=== PATIENT | female | born 1950 | race Caucasian/White ===

== ENCOUNTER 2020-04-25 18:19 | Inpatient (IN) | payer MEDICARE, BC ==
[2020-04-25 19:25] LABS: Hemoglobin 13.8 g/dL (12.0-16.0); Mean Corpuscular HGB CONC 33.8 g/dL (32.0-36.0); Mean Corpuscular Hemoglobin 31.2 pg (27.0-31.0); Mean Corpuscular Volume 92.2 fL (78.0-98.0); Mean Platelet Volume 8.1 fL (7.4-10.4); Platelet Count 299 thou/uL (130-400); RBC Distribution Width 11.6 % (11.5-14.5); Red Blood Cell (RBC) Count 4.42 mill/uL (4.20-5.40); White Blood Cell (WBC) Count 9.6 thou/uL (4.8-10.8)
[2020-04-25 19:42] LABS: ALT (SGPT) 14 U/L (8-55); AST (SGOT) 19 U/L (5-34); Albumin 4.4 g/dL (3.4-4.8); Alkaline Phosphatase 63 U/L (40-110); Anion Gap 14 mmol/L (10-20); BUN (Urea Nitrogen) 10 mg/dL (9.8-20.1); Bilirubin, Total 0.2 mg/dL (0.2-1.2); Calc. Creatinine Clearance 0 mL/min (70-130); Calcium 9.3 mg/dL (7.8-10.44); Carbon Dioxide 27 mmol/L (23-31); Chloride 103 mmol/L (98-107); Estimated GFR-MDRD 72; Glucose 91 mg/dL (80-115); Protein, Total 7.4 g/dL (6.0-8.3); Sodium 140 mmol/L (136-145)
[2020-04-25 19:45] LABS: Band 2 % (5-11); Eosinophils 1 % (0-10); Lymphocytes 43 % (21-51); MDiff Complete? YES; Monocytes 3 % (0-10); Neutrophil 37 % (42-75); Platelet Morphology Comment Appears Adequate; Polychromasia SLIGHT = 2-3 cells (100X) (0-2/hpf); Reactive Lymphocytes 14 % (0-10)
--- NOTE | 2020-04-25 19:49 | RAD ---
TWO VIEW CHEST: 04/25/20 HISTORY: Chest pain and shortness of breath. Lung woods are clear. Heart and mediastinum appear normal. Vasculature normal. IMPRESSION: No acute process. POS: AGW
[2020-04-25] MEDS ORDERED: Albuterol 200 PUFF (6.7GM INHALER) ONE (21:57)
[2020-04-25] MEDS ORDERED: Aspirin 325 MG TAB ONE (21:57)
[2020-04-25] MEDS ORDERED: Morphine 2 MG/ML VIAL ONE (21:57)
[2020-04-25] MEDS ORDERED: methylPREDNISolone Sod Succ/PF 125 MG/2 ML VIAL ONE (21:57)
[2020-04-26 00:16] LABS: Troponin I Less than 0.010 ng/mL (< 0.028)
[2020-04-26 02:44] VITALS: BMI 24.0
[2020-04-26 03:25] LABS: Troponin I 0.011 ng/mL (< 0.028)
[2020-04-26] MEDS ORDERED: Aspirin Chewable 81 MG TAB PO SCH (09:00)
[2020-04-26] MEDS ORDERED: Regadenoson 0.4 MG/5 ML SYRINGE ONE (09:21)
[2020-04-26] MEDS ORDERED: Nitroglycerin 0.4 MG TAB (25 Tab Bottle) SL PRN (09:23)
--- NOTE | 2020-04-26 10:16 | PDOC.HHP ---
Hospitalist HPI - History of Present Illness Chest pain History of Present Illness: Ms. Eldridge is a 69-year-old female with a past medical history of asthma, tobacco use who presented to the ED for chest pain. Patient reports that 2 days prior to admission she was working in her yard moving lots of very heavy items and noticed that she became short of breath quite easily. She reports that she felt a chest tightness as if she was wearing her bra 2 sizes too small. She has not had dyspnea previously, although she does have a history of asthma for which she takes montelukast and rarely uses an albuterol inhaler for. She did use her albuterol inhaler during this event, but did not find any relief in her symptoms. She reports that her chest tightness has been constant over the past 2 days. She reports no alleviating or aggravating factors. At time of exam she notes her chest tightness is much improved and she is asymptomatic. She denies any history of heart disease, but does report that she had a cardiac catheterization in 2007 which was normal. She has a family history of heart disease in her mother and grandmother. Patient also reports that she smokes 1 to 2 packs of cigarettes per day. She denies any numbness, paresthesias, weakness. She denies any changes in vision. She denies any nausea, vomiting, diarrhea. In the emergency room initial vital signs 151/56, 87, 18, 97.9, 99% on room air. EKG showed normal sinus rhythm with no ischemic changes. Initial troponin 0 0.01. Chest x-ray showed no acute process. H/H 13.8/40.7. WBC 9.6. BUN/CR 10/0.79. Sodium 140, potassium 4.0. In the ED patient received 3 and 25 mg of aspirin, albuterol inhaler, methylprednisone 125 mg, morphine 2 mg, 1.5 L of normal saline. Hospitalist ROS - Review of Systems Constitutional: denies: fever, chills, sweats, weakness, malaise, other Eyes: denies: pain, vision change, conjunctivae inflammation, eyelid inflammation, redness, other ENT: denies: ear pain, ear discharge, nose pain, nose discharge, nose congestion, mouth pain, mouth swelling, throat pain, throat swelling, other Respiratory: reports: SOB with excertion. denies: cough, dry, shortness of breath, hemoptysis, pleuritic pain, sputum, wheezing, other Cardiovascular: reports: chest pain. denies: palpitations, orthopnea, paroxysmal noc. dyspnea, edema, light headedness, other Gastrointestinal: denies: nausea, vomiting, abdominal pain, diarrhea, constipation, melena, hematochezia, other Genitourinary: denies: dysuria, frequency, incontinence, hematuria, retention, other Musculoskeletal: denies: neck pain, shoulder pain, arm pain, back pain, hand pain, leg pain, foot pain, other Skin: denies: rash, lesions, temi, bruising, other Neurological: denies: weakness, numbness, incoordination, change in speech, confusion, seizures, other - Medication Medications: Home medications include Montelukast Premarin No known drug allergies Hospitalist History - Past Medical History Other Medical History: Past medical history of Asthma Tobacco use - Past Surgical History Other Surgical History: Past surgical history includes Tonsillectomy Hysterectomy - Family History Other Family History: Family history of heart attack in patient's mother, and grandmother. - Social History Smoking Status: Current every day smoker Tobacco Type: cigarettes Alcohol: reports: None Drugs: reports: none Living Situation: With Family Activity level: independent ambulation Other Social History: Patient lives at home with her son who has special needs. Patient notes that her 3 years ago, which has been very difficult for her son. - Exam General Appearance: NAD, awake alert Eye: PERRL, anicteric sclera ENT: normocephalic atraumatic, no oropharyngeal lesions, moist mucosa Neck: supple, symmetric, no JVD, no thyromegaly, no lymphadenopathy, no carotid bruit Heart: RRR, no murmur, no gallops, no rubs, normal peripheral pulses Respiratory: CTAB, no wheezes, no rales, no ronchi, normal chest expansion, no tachypnea, normal percussion Gastrointestinal: soft, non-tender, non-distended, normal bowel sounds, no palpable masses, no hepatomegaly, no splenomegaly, no bruit Extremities: no cyanosis, no clubbing, no edema Skin: normal turgor, no lesions, no rashes Neurological: cranial nerve grossly intact, normal sensation to touch, no weakness, no focal deficits, no new deficit Musculoskeletal: normal tone, normal strength, no muscle wasting Psychiatric: normal affect, normal behavior, A&O x 3 Hospitalist Results - Labs Result Diagrams: 04/25/20 19:11 04/25/20 19:11 Lab results: WBC 9.6 thou/uL (4.8-10.8) 04/25/20 19:11 Hgb 13.8 g/dL (12.0-16.0) 04/25/20 19:11 Hct 40.7 % (36.0-47.0) 04/25/20 19:11 MCV 92.2 fL (78.0-98.0) 04/25/20 19:11 Plt Count 299 thou/uL (130-400) 04/25/20 19:11 Band Neuts % (Manual) 2 % (5-11) L 04/25/20 19:11 Sodium 140 mmol/L (136-145) 04/25/20 19:11 Potassium 4.0 mmol/L (3.5-5.1) 04/25/20 19:11 Chloride 103 mmol/L (98-107) 04/25/20 19:11 Carbon Dioxide 27 mmol/L (23-31) 04/25/20 19:11 BUN 10 mg/dL (9.8-20.1) 04/25/20 19:11 Creatinine 0.79 mg/dL (0.6-1.1) 04/25/20 19:11 Glucose 91 mg/dL (80-115) 04/25/20 19:11 Calcium 9.3 mg/dL (7.8-10.44) 04/25/20 19:11 Total Bilirubin 0.2 mg/dL (0.2-1.2) 04/25/20 19:11 AST 19 U/L (5-34) 04/25/20 19:11 ALT 14 U/L (8-55) 04/25/20 19:11 Alkaline Phosphatase 63 U/L (40-110) 04/25/20 19:11 Troponin I 0.011 ng/mL (< 0.028) 04/26/20 02:51 Serum Total Protein 7.4 g/dL (6.0-8.3) 04/25/20 19:11 Albumin 4.4 g/dL (3.4-4.8) 04/25/20 19:11 Lipase 30 U/L (8-78) 04/25/20 19:11 Hospitalist H&P A/P - Plan Plan: Chest pain 69-year-old female with past medical history of asthma, 1.5 pack/day smoker who has a family history significant for heart disease in mother and grandmother who presents with 2 days of chest tightness. Initial EKG showed normal sinus rhythm with no ischemic changes. Initial troponin 0 0.01. D-dimer 0.27. Chest x-ray with no acute findings. History of a cardiac cath in 2007 which was normal. Patient has not had any stress testing since then. Patient did receive methylprednisolone, ASA, albuterol nebulizer in emergency room with mild improvement in her symptoms. Patient currently denies any chest pain. Will admit for chest pain rule out with plan for stress test if troponins stay negative. Plan Trend troponin N.p.o. for stress test Telemetry monitoring Magnesium, TSH Daily aspirin Lipid panel, hemoglobin A1c Asthma Patient has history of asthma for which she takes daily montelukast 4. Patient reports that she rarely uses her albuterol inhaler, only once every few years. Patient did use her albuterol inhaler when she felt her shortness of breath and chest tightness, but this did not improve her symptoms. Patient received 125 mg of methylprednisone in the ED as well as an albuterol nebulizer. Patient currently saturating at 99% on room air in no respiratory distress. Patient reports her breathing feels back to baseline. Plan Continue daily montelukast Albuterol nebulizers as needed Continue to monitor respiratory status Tobacco use History of tobacco use, patient reports 1 to 2 packs/day. Patient counseled on smoking cessation, particularly given her family history. Plan Smoking cessation education DVT prophylaxis: Lovenox Full code Case discussed with attending physician Dr. Chung.
[2020-04-26] MEDS ORDERED: Albuterol Sulfate 2.5 mg/3 ml Neb NEB PRN (10:25)
[2020-04-26 13:00] LABS: SARS-CoV-2 MS2 Positive; SARS-CoV-2 N Gene Negative; SARS-CoV-2 S Gene Negative; SARS-CoV-2 by NAA Not Detected (NotDetected); SARS-CoV-2 orf1ab Negative
--- NOTE | 2020-04-26 13:22 | NM ---
NM Cardiac Stress W EF WF History: Chest pain Comparison: None. Findings: Stress and rest performed after the intravenous administration of 30 and 9.1 mCi technetium 99m sestamibi, respectively. Small anterior septal scar. No reversible ischemia. Normal wall motion. Calculated ejection fraction is 71%. Impression: 1. No reversible ischemia. 2. Small anterior septal scar. 3. Normal wall motion.
[2020-04-26] MEDS ORDERED: Montelukast Sodium 10 mg Tablet PO SCH (21:00)
[2020-04-27 04:54] LABS: Cardiac Risk 3.1 (Less than 4.5)
[2020-04-27] MEDS ORDERED: Aspirin 81 mg Enteric Coated Tablet PO SCH (09:00)
[2020-04-27] MEDS ORDERED: Aspirin 325 mg Enteric Coated Tablet PO SCH ×2 (09:00)
[2020-04-27] MEDS ORDERED: Enoxaparin Sodium 40 MG/0.4 ML SYRINGE SC SCH (09:00)
--- NOTE | 2020-04-27 11:39 | PDOC.DS.DS ---
Provider - Provider Date of Admission: 04/25/20 23:23 Date of Discharge: 04/27/20 Admitting Provider: Ian Majano Consultations: Cardiology (STRESS TEST) Primary Care Physician: Ángel Domínguez MD Course - Hospital Course Hospital Course: Ms. Eldridge is a 69-year-old woman whose medical history includes tobacco dependence, history of asthma presented to the hospital with chest tightness that started on the date of this admission. She does have a very strong family history of coronary artery disease in multiple family members. She was concerned she was having an acute coronary syndrome when she was admitted for further evaluation. Her cardiac enzymes were negative. She underwent a Cardiolite stress test that did not show any reversible ischemia. She has remained clinically stable since her admission. We did talk about risk factor modifications including tobacco cessation. She will follow-up with her PCP. She will discuss options for tobacco cessation during that visit. She otherwise appears to be doing reasonably well and is discharged home today in stable condition. Pertinent Studies: Cardiolite stress test. - Labs Lab Results: 04/25/20 19:11 04/25/20 19:11 Abnormal Lab Results - Last 48 hrs 04/25/20 19:11: MCH 31.2 H, Neutrophils % (Manual) 37 L, Band Neuts % (Manual) 2 L, Reactive Lymphs % 14 H 04/25/20 21:40: D-Dimer Less than 0.27 L - Physical Exam Vitals: Vital Signs (12 hours) Temp Pulse Resp BP Pulse Ox 04/27/20 08:00 97 04/27/20 04:28 98.0 F 96 18 108/58 L 04/27/20 02:10 96 Weight Weight 145 lb 9.6 oz Physical Exam: The patient was seen and examined on the day of discharge. Problem - Discharge Plan Assessment: Chest tightness. Tobacco dependence. History of asthma. Plan of Treatment: Stress test. - Problem (1) Chest tightness Code(s): R07.89 - OTHER CHEST PAIN Status: Acute (2) Tobacco dependence Code(s): F17.200 - NICOTINE DEPENDENCE, UNSPECIFIED, UNCOMPLICATED Status: Acute Plan - Discharge Medications Home Medications: Medication Instructions Recorded Confirmed Type Aspirin [Ecotrin Low Strength] 81 mg PO HS 04/26/20 04/26/20 History Estrogens, Conjugated [Premarin] 0.625 mg PO HS 04/26/20 04/26/20 History Montelukast Sodium [Singulair] 10 mg PO HS 04/26/20 04/26/20 History Allergies: No Known Drug Allergies Allergy (Unverified 04/26/20 02:11) - Discharge Instructions Activity:: Activity as Tolerated Nourishment:: Heart Healthy Diet Therapies:: Not Applicable Equipment/Supplies:: Not Applicable IV Therapy:: Not Applicable - Follow up Plan Referrals: Ángel Domínguez MD [Primary Care Provider] - 7 Days Disposition: HOME Quality - Care Measures CORE MEASURES:: N/A
[2020-04-27 12:32] VITALS: BP 126/62; TEMP 98.2
--- NOTE | 2020-05-05 15:05 | EKG ---
Test Reason : CP Blood Pressure : / mmHG Vent. Rate : 083 BPM Atrial Rate : 083 BPM P-R Int : 122 ms QRS Dur : 084 ms QT Int : 356 ms P-R-T Axes : 082 068 071 degrees QTc Int : 418 ms Normal sinus rhythm Possible Left atrial enlargement Borderline ECG Confirmed by MARY LOUISE ([id number]), marketing editor FRANSISCO KERR ([id number] on 05/05/2020 3:04:39 PM Referred By: Confirmed By:MARY LOUISE
== END 2020-04-27 13:33 | disposition home or self-care (01) | DRG 313 ==
LOC: ERS 18:19 → 2NO 23:23
PROVIDERS: ADMIT Internal Medicine; ATTEND Hospitalist
DX: R07.89 Other chest pain (principal); J44.1 Chronic obstructive pulmonary disease with (acute) exacerbation; F17.210 Nicotine dependence, cigarettes, uncomplicated; Z20.828 Contact with and (suspected) exposure to other viral communicable diseases; I10 Essential (primary) hypertension; F32.9 Major depressive disorder, single episode, unspecified; Z79.899 Other long term (current) drug therapy; Z90.710 Acquired absence of both cervix and uterus; Z79.82 Long term (current) use of aspirin
CPT/HCPCS: 36415; 71046; 78452; 80053; 80061; 83036; 83690; 83735; 84443; 84484; 85025; 85379; 87635; 93005; 93017; 93306; 94760; 96374; 96375; A9500; J1650; J2270; J2785; J2930; U0003

== ENCOUNTER 2022-04-18 09:51 | Outpatient (CLI) | payer MEDICARE, BC | END 2022-04-18 09:52 | disposition home or self-care (01) | LOC: BICMAMMO 09:51 | PROVIDERS: ATTEND Family Medicine | DX: Z12.31 Encounter for screening mammogram for malignant neoplasm of breast (principal); Z80.3 Family history of malignant neoplasm of breast | CPT/HCPCS: 77063; 77067 ==

== ENCOUNTER 2023-01-09 09:10 | Outpatient (CLI) | payer MEDICARE, BC | END 2023-01-09 09:11 | disposition home or self-care (01) | LOC: BICMAMMO 09:10 | PROVIDERS: ATTEND Family Medicine | DX: N63.42 Unspecified lump in left breast, subareolar (principal); N64.89 Other specified disorders of breast | CPT/HCPCS: 76642; 77066; G0279 ==

== ENCOUNTER 2023-01-30 10:57 | Day surgery (SDC) | payer MEDICARE, BC ==
[2023-01-29 10:55] VITALS: BMI 22.2
[2023-01-30] MEDS ORDERED: Bupivacaine HCl 0.5%/Epinephrine 1:200,000/PF 30 ml Vial ONE (11:16)
[2023-01-30] MEDS ORDERED: Sevoflurane 250 ML INH ANEST BOTTLE ONE (11:16)
[2023-01-30] MEDS ORDERED: Lidocaine 2% PF 5 ML VIAL ONE (11:16)
[2023-01-30 12:34] LABS: #Basophils 0.1 thou/uL (0.0-0.2); #Eosinphils 0.2 thou/uL (0.0-0.7); #Monocytes 0.4 thou/uL (0.11-0.59); #Neutrophils 3.7 thou/uL (1.40-6.50); %Basophils 0.6 % (0.0-1.0); %Eosinophils 1.9 % (0.0-10.0); %Lymphocytes 43.6 % (21.0-51.0); %Monocytes 5.7 % (0.0-10.0); %Neutrophils 47.8 % (42.0-75.0); Hemoglobin 13.1 g/dL (12.0-16.0); Mean Corpuscular HGB CONC 32.5 g/dL (32.0-36.0); Mean Corpuscular Hemoglobin 29.8 pg (27.0-31.0); Mean Corpuscular Volume 91.8 fl (78.0-98.0); Platelet Count 308 10x3/uL (130-400); RBC Distribution Width 12.6 % (11.5-14.5); Red Blood Cell (RBC) Count 4.39 mill/uL (4.20-5.40); White Blood Cell (WBC) Count 7.7 10x3/uL (4.8-10.8)
[2023-01-30 12:57] LABS: Anion Gap 13 mmol/L (10-20); BUN (Urea Nitrogen) 11 mg/dL (9.8-20.1); Calc. Creatinine Clearance 63 mL/min (70-130); Calcium 9.4 mg/dL (7.8-10.44); Carbon Dioxide 28 mmol/L (23-31); Chloride 104 mmol/L (98-107); Estimated GFR 77; Glucose 82 mg/dL (83-110); Potassium 4.1 mmol/L (3.5-5.1); Sodium 141 mmol/L (136-145)
[2023-01-30] MEDS ORDERED: fentaNYL PF 100 MCG/2 ML SYRINGE ONE (13:25)
[2023-01-30] MEDS ORDERED: Propofol 500 MG/50 ML VIAL ONE (13:26)
[2023-01-30] MEDS ORDERED: Sodium Chloride 0.9% 100 ML ONE (13:29)
[2023-01-30] MEDS ORDERED: CEFAZOLIN 2 GM VIAL ONE (13:29)
== END 2023-01-30 15:33 | disposition home or self-care (01) ==
LOC: SDC 10:57
PROVIDERS: ATTEND Surgery
PROC: 0JH60WZ Insertion of Totally Implantable Vascular Access Device into Chest Subcutaneous Tissue and Fascia, Open Approach (ICD-10-PCS; principal; 2023-01-30)
DX: C50.912 Malignant neoplasm of unspecified site of left female breast (principal); F17.210 Nicotine dependence, cigarettes, uncomplicated; Z90.710 Acquired absence of both cervix and uterus; Z90.89 Acquired absence of other organs; Z79.82 Long term (current) use of aspirin
CPT/HCPCS: 71045; 80048; 85025; C1788; J1642; J2001; J2704; J3490

== ENCOUNTER 2023-02-04 08:00 | Outpatient (CLI) | payer MEDICARE, BC ==
[2023-02-04] MEDS ORDERED: Iopamidol 370 76% 100 ML VIAL ONE (09:32)
== END 2023-02-04 08:01 | disposition home or self-care (01) ==
LOC: CT 08:00
PROVIDERS: ATTEND Internal Medicine
DX: C50.412 Malignant neoplasm of upper-outer quadrant of left female breast (principal); N63.20 Unspecified lump in the left breast, unspecified quadrant; K76.9 Liver disease, unspecified
CPT/HCPCS: 71260; 74177; 78306; A9503; Q9967

== ENCOUNTER 2023-02-25 12:29 | Outpatient (CLI) | payer MEDICARE, BC | END 2023-02-25 12:30 | disposition home or self-care (01) | LOC: BICMRI 12:29 | PROVIDERS: ATTEND Internal Medicine | DX: C50.412 Malignant neoplasm of upper-outer quadrant of left female breast (principal) | CPT/HCPCS: 36415; 74183; 80053; 84439; 84443 ==

== ENCOUNTER 2023-04-24 10:51 | Emergency (ER) | payer MEDICARE, BC ==
[~2023-04-24 10:51] MED LIST: Iopamidol-370 76% 500 ML MDV (1 ML CHARGE) ONE
[2023-04-24 12:18] LABS: Hematocrit 22.1 % (36.0-47.0); Hemoglobin 7.2 g/dL (12.0-16.0); Mean Corpuscular HGB CONC 32.6 g/dL (32.0-36.0); Mean Corpuscular Volume 98.2 fl (78.0-98.0); Mean Platelet Volume 10.1 fL (7.4-10.4); Platelet Count 166 10x3/uL (130-400); RBC Distribution Width 18.9 % (11.5-14.5); Red Blood Cell (RBC) Count 2.25 mill/uL (4.20-5.40); White Blood Cell (WBC) Count 4.8 10x3/uL (4.8-10.8)
[2023-04-24 12:19] LABS: Delete Auto Diff?? YES; Manual Diff?? YES
[2023-04-24 12:37] LABS: ALT (SGPT) 10 U/L (8-55); AST (SGOT) 16 U/L (5-34); Albumin 3.6 g/dL (3.4-4.8); Alkaline Phosphatase 42 U/L (40-110); Anion Gap 13 mmol/L (10-20); BUN (Urea Nitrogen) 10 mg/dL (9.8-20.1); Bilirubin, Total 0.6 mg/dL (0.2-1.2); Calc. Creatinine Clearance 0 mL/min (70-130); Calcium 8.6 mg/dL (7.8-10.44); Carbon Dioxide 23 mmol/L (23-31); Chloride 100 mmol/L (98-107); Estimated GFR 93; Globulin 2.2 g/dL (2.4-3.5); Glucose 86 mg/dL (83-110); Protein, Total 5.8 g/dL (5.8-8.1); Sodium 132 mmol/L (136-145)
[2023-04-24 12:45] LABS: Troponin I Less than 0.010 ng/mL (< 0.028)
[2023-04-24 12:59] LABS: Anisocytosis SLIGHT = 6-15 cells HPF (0-5); Band 18 % (5-11); CellaVision Operator ID LAB.MJL; Helmet Cells SLIGHT = 2-5 cells HPF (0-1); Lymphocytes 25 % (21-51); Metamyelocyte 2 % (0-0); Monocytes 1 % (0-10); Neutrophil 55 % (42-75); Ovalocytes SLIGHT = 2-5 cells HPF (0-1); Platelet Adequacy Comment Platelets Normal; Polychromasia SLIGHT = 2-3 cells HPF (0-2); Total Cell Count 101
== END 2023-04-24 14:22 | disposition home or self-care (01) ==
LOC: ERS 10:51
DX: D64.9 Anemia, unspecified (principal); J44.9 Chronic obstructive pulmonary disease, unspecified; F17.210 Nicotine dependence, cigarettes, uncomplicated; C50.412 Malignant neoplasm of upper-outer quadrant of left female breast; Z79.899 Other long term (current) drug therapy
CPT/HCPCS: 36430; 71045; 71275; 80053 ×2; 82306; 82728; 83540; 83550; 83880; 84484; 85025; 86850; 86900; 86901; 86920; 87040; 93005; 94760; 99285; P9016; 36415; Q9967

== ENCOUNTER 2023-05-18 12:18 | Outpatient (CLI) | payer MEDICARE, BC | END 2023-05-18 12:19 | disposition home or self-care (01) | LOC: ULT 12:18 | PROVIDERS: ATTEND Internal Medicine | DX: Z51.11 Encounter for antineoplastic chemotherapy (principal); C50.412 Malignant neoplasm of upper-outer quadrant of left female breast; I08.1 Rheumatic disorders of both mitral and tricuspid valves; Z79.899 Other long term (current) drug therapy | CPT/HCPCS: 93306 ==

== ENCOUNTER 2023-06-10 10:52 | Inpatient (IN) | payer MEDICARE, BC ==
[2023-06-10 12:11] LABS: Hematocrit 25.2 % (36.0-47.0); Hemoglobin 8.7 g/dL (12.0-16.0); Manual Diff?? YES; Mean Corpuscular HGB CONC 34.5 g/dL (32.0-36.0); Mean Corpuscular Hemoglobin 33.2 pg (27.0-31.0); Mean Corpuscular Volume 96.2 fl (78.0-98.0); Mean Platelet Volume 9.8 fL (7.4-10.4); Platelet Count 297 10x3/uL (130-400); RBC Distribution Width 13.9 % (11.5-14.5); Red Blood Cell (RBC) Count 2.62 mill/uL (4.20-5.40); White Blood Cell (WBC) Count 11.7 10x3/uL (4.8-10.8)
[2023-06-10 12:16] LABS: Delete Auto Diff?? YES
[2023-06-10 12:40] LABS: ALT (SGPT) 7 U/L (8-55); AST (SGOT) 21 U/L (5-34); Albumin 3.5 g/dL (3.4-4.8); Alkaline Phosphatase 59 U/L (40-110); Anion Gap 15 mmol/L (10-20); BUN (Urea Nitrogen) 10 mg/dL (9.8-20.1); Bilirubin, Total 0.6 mg/dL (0.2-1.2); Calc. Creatinine Clearance 0 mL/min (70-130); Calcium 8.5 mg/dL (7.8-10.44); Carbon Dioxide 23 mmol/L (23-31); Chloride 93 mmol/L (98-107); Estimated GFR 86; Globulin 2.8 g/dL (2.4-3.5); Glucose 58 mg/dL (83-110); Protein, Total 6.3 g/dL (5.8-8.1); Sodium 127 mmol/L (136-145)
[2023-06-10 13:24] LABS: Band 24 % (5-11); CellaVision Operator ID LAB.GE; Lymphocytes 20 % (21-51); Metamyelocyte 8 % (0-0); Monocytes 11 % (0-10); Myelocyte 3 % (0-0); Neutrophil 34 % (42-75); Platelet Adequacy Comment Platelets Normal; Polychromasia SLIGHT = 2-3 cells HPF (0-2); Total Cell Count 103; Toxic Granulation SLIGHT
[2023-06-10] MEDS ORDERED: Ondansetron PF 4 MG/2 ML Vial ONE (13:33)
[2023-06-10] MEDS ORDERED: Cefepime 2 GM VIAL ONE (15:31)
[2023-06-10] MEDS ORDERED: Aspirin 325 MG TAB ONE (15:31)
[2023-06-10] MEDS ORDERED: Vancomycin 1 GM/200 ML (FROZEN) BAG ONE (15:34)
[2023-06-10] MEDS ORDERED: Acetaminophen 325 MG TAB PO PRN (15:38)
[2023-06-10] MEDS ORDERED: Acetaminophen 650 MG Suppository PR PRN (15:38)
[2023-06-10] MEDS ORDERED: Prochlorperazine Edisylate 10 MG in Sodium Chloride 0.9% 50 ML IVPB PRN (15:42)
[2023-06-10] MEDS ORDERED: Ondansetron PF 4 MG/2 ML Vial IVP PRN (15:43)
[2023-06-10 16:33] LABS: Bacteria/HPF 1+ HPF (None Seen); Bilirubin Negative (Negative); Blood, Urine Negative (Negative); CAUTI Indications for Culture Immunosuppressed; Clarity Clear (Clear); Glucose, Urine (Dipstick) Normal (Negative); Ketone, Urine 60 mg/dL (Negative); Leukocyte 75 Leu/uL (Negative); Nitrite Negative (Negative); Protein, Urine (Dipstick) Negative (Neg-Trace); Specific Gravity, Urine 1.014 (1.002-1.036); Squamous Epithelial 0-3 HPF (0-3); Urobilinogen Normal mg/dL (Less than 2); pH, Urine 5.5 (5.0-9.0)
[2023-06-10 16:35] LABS: Urine Culture Reflex Yes Yes
[2023-06-10 19:34] VITALS: BMI 21.3
[2023-06-10] MEDS: Mometasone 100 MCG/Formoterol 5 MCG 120 PUFF INHALER INH SCH (19:44)
[2023-06-10 19:59] LABS: Anion Gap 14 mmol/L (10-20); BUN (Urea Nitrogen) 8 mg/dL (9.8-20.1); Calc. Creatinine Clearance 70 mL/min (70-130); Calcium 7.9 mg/dL (7.8-10.44); Carbon Dioxide 19 mmol/L (23-31); Chloride 97 mmol/L (98-107); Estimated GFR 92; Glucose 78 mg/dL (83-110); Potassium 3.8 mmol/L (3.5-5.1); Sodium 126 mmol/L (136-145)
[2023-06-10] MEDS: Sodium Chloride 0.9% 1,000 ML IV SCH (20:35)
[2023-06-10] MEDS: cefTRIAXone\\ROCEPHIN 1 GM in Sodium Chloride 0.9% 100 ML IVPB SCH (20:35)
[2023-06-10] MEDS: Montelukast Sodium 10 mg Tablet PO SCH (20:35)
[2023-06-11 04:37] LABS: Hematocrit 21.8 % (36.0-47.0); Hemoglobin 7.4 g/dL (12.0-16.0); Manual Diff?? YES; Mean Corpuscular HGB CONC 33.9 g/dL (32.0-36.0); Mean Corpuscular Hemoglobin 32.9 pg (27.0-31.0); Mean Corpuscular Volume 96.9 fl (78.0-98.0); Mean Platelet Volume 9.7 fL (7.4-10.4); Platelet Count 304 10x3/uL (130-400); RBC Distribution Width 13.7 % (11.5-14.5); Red Blood Cell (RBC) Count 2.25 mill/uL (4.20-5.40); White Blood Cell (WBC) Count 7.1 10x3/uL (4.8-10.8)
[2023-06-11 04:49] LABS: Delete Auto Diff?? YES
[2023-06-11 05:13] LABS: ALT (SGPT) 9 U/L (8-55); AST (SGOT) 22 U/L (5-34); Albumin 2.8 g/dL (3.4-4.8); Alkaline Phosphatase 47 U/L (40-110); Anion Gap 11 mmol/L (10-20); BUN (Urea Nitrogen) 6 mg/dL (9.8-20.1); Bilirubin, Total 0.4 mg/dL (0.2-1.2); Calc. Creatinine Clearance 71 mL/min (70-130); Carbon Dioxide 23 mmol/L (23-31); Chloride 100 mmol/L (98-107); Estimated GFR 92; Globulin 2.4 g/dL (2.4-3.5); Glucose 80 mg/dL (83-110); Potassium 3.9 mmol/L (3.5-5.1); Protein, Total 5.2 g/dL (5.8-8.1); Sodium 130 mmol/L (136-145)
[2023-06-11 05:16] LABS: Band 21 % (5-11); CellaVision Operator ID LAB.CLH1; Hypochromia SLIGHT = 6-15 cells HPF (0-5); Lymphocytes 23 % (21-51); Metamyelocyte 4 % (0-0); Monocytes 8 % (0-10); Neutrophil 43 % (42-75); Platelet Adequacy Comment Platelets Normal; Polychromasia SLIGHT = 2-3 cells HPF (0-2); Reactive Lymphocytes 1 % (0-10); Total Cell Count 101
[2023-06-11] MEDS: Mometasone 100 MCG/Formoterol 5 MCG 120 PUFF INHALER INH SCH ×2 (06:45→18:46)
[2023-06-11] MEDS: Escitalopram Oxalate 10 mg Tablet PO SCH (08:21)
[2023-06-11] MEDS: Hydrocortisone 10 mg Tablet PO SCH ×3 (11:51→21:20)
[2023-06-11] MEDS: Sodium Chloride 0.9% 1,000 ML IV SCH (11:51)
[2023-06-11 20:32] LABS: Hematocrit 25.6 % (36.0-47.0)
[2023-06-11] MEDS ORDERED: Megestrol Acetate 400 MG/10 ML UDCUP PO SCH (21:00)
[2023-06-11] MEDS: cefTRIAXone\\ROCEPHIN 1 GM in Sodium Chloride 0.9% 100 ML IVPB SCH (21:20)
[2023-06-11] MEDS: Montelukast Sodium 10 mg Tablet PO SCH (21:20)
[2023-06-11] MEDS: Mirtazapine 15 MG TAB PO SCH (21:20)
[2023-06-11] MEDS ORDERED: Megestrol Acetate 800 MG/20 ML UDCUP PO SCH (21:30)
[2023-06-12 04:22] LABS: Hematocrit 25.9 % (36.0-47.0); Manual Diff?? YES; Mean Corpuscular HGB CONC 34.7 g/dL (32.0-36.0); Mean Corpuscular Hemoglobin 32.4 pg (27.0-31.0); Mean Platelet Volume 9.6 fL (7.4-10.4); Platelet Count 341 10x3/uL (130-400); RBC Distribution Width 14.1 % (11.5-14.5); Red Blood Cell (RBC) Count 2.78 mill/uL (4.20-5.40); White Blood Cell (WBC) Count 4.8 10x3/uL (4.8-10.8)
[2023-06-12 04:49] LABS: Anion Gap 11 mmol/L (10-20); BUN (Urea Nitrogen) 4 mg/dL (9.8-20.1); Calc. Creatinine Clearance 80 mL/min (70-130); Calcium 8.5 mg/dL (7.8-10.44); Carbon Dioxide 25 mmol/L (23-31); Chloride 104 mmol/L (98-107); Estimated GFR 95; Glucose 166 mg/dL (83-110); Magnesium 1.8 mg/dL (1.6-2.6); Sodium 136 mmol/L (136-145)
[2023-06-12 05:35] LABS: Delete Auto Diff?? YES; Mean Corpuscular Volume 93.2 fl (78.0-98.0)
[2023-06-12 06:39] LABS: Band 19 % (5-11); Burr Cells SLIGHT = 2-5 cells HPF (0-1); CellaVision Operator ID LAB.JMM; Large Platelets 7.8 % (0-5); Lymphocytes 13 % (21-51); Macrocytosis SLIGHT = 6-15 cells HPF (0-5); Metamyelocyte 1 % (0-0); Monocytes 4 % (0-10); Myelocyte 5 % (0-0); Neutrophil 58 % (42-75); Ovalocytes SLIGHT = 2-5 cells HPF (0-1); Platelet Adequacy Comment Platelets Normal; Poikilocytosis SLIGHT = 6-15 cells HPF (0-5); Polychromasia SLIGHT = 2-3 cells HPF (0-2); Smudge Cells 3.9 %; Total Cell Count 103
[2023-06-12] MEDS: Mometasone 100 MCG/Formoterol 5 MCG 120 PUFF INHALER INH SCH ×2 (07:39→20:07)
[2023-06-12] MEDS: Hydrocortisone 10 mg Tablet PO SCH ×3 (07:52→19:58)
[2023-06-12] MEDS: Escitalopram Oxalate 10 mg Tablet PO SCH (07:52)
[2023-06-12] MEDS: Cholecalciferol 1,000 UNITS (25 MCG) TAB PO SCH (07:52)
[2023-06-12] MEDS: Cyanocobalamin (Vitamin B-12) 1,000 MCG TAB PO SCH (07:52)
[2023-06-12] MEDS: Megestrol Acetate 800 MG/20 ML UDCUP PO SCH ×2 (07:53→19:58)
[2023-06-12] MEDS ORDERED: Calcium Carbonate 600 MG + Vit D TAB PO SCH (08:00)
[2023-06-12] MEDS ORDERED: Cyanocobalamin (Vitamin B-12) 1,000 MCG TAB PO SCH (09:00)
[2023-06-12] MEDS ORDERED: Gabapentin 300 MG CAP PO SCH ×2 (09:00→21:00)
[2023-06-12] MEDS ORDERED: Escitalopram Oxalate 10 mg Tablet PO SCH (09:00)
[2023-06-12 15:37] LABS: Anion Gap 12 mmol/L (10-20); BUN (Urea Nitrogen) 8 mg/dL (9.8-20.1); Calc. Creatinine Clearance 71 mL/min (70-130); Calcium 8.8 mg/dL (7.8-10.44); Carbon Dioxide 25 mmol/L (23-31); Chloride 102 mmol/L (98-107); Estimated GFR 92; Glucose 242 mg/dL (83-110); Potassium 3.8 mmol/L (3.5-5.1); Sodium 135 mmol/L (136-145)
[2023-06-12] MEDS: cefTRIAXone\\ROCEPHIN 1 GM in Sodium Chloride 0.9% 100 ML IVPB SCH (19:56)
[2023-06-12] MEDS: Mirtazapine 15 MG TAB PO SCH (19:58)
[2023-06-12] MEDS: Montelukast Sodium 10 mg Tablet PO SCH (19:58)
[2023-06-13 04:47] LABS: #Monocytes 0.9 thou/uL (0.11-0.59); #Neutrophils 5.8 thou/uL (1.40-6.50); %Basophils 0.3 % (0.0-1.0); %Lymphocytes 17.4 % (21.0-51.0); %Monocytes 10.6 % (0.0-10.0); %Neutrophils 66.9 % (42.0-75.0); Hematocrit 25.8 % (36.0-47.0); Hemoglobin 8.7 g/dL (12.0-16.0); Mean Corpuscular HGB CONC 33.7 g/dL (32.0-36.0); Mean Corpuscular Hemoglobin 32.7 pg (27.0-31.0); Mean Platelet Volume 9.6 fL (7.4-10.4); Platelet Count 445 10x3/uL (130-400); RBC Distribution Width 14.8 % (11.5-14.5); Red Blood Cell (RBC) Count 2.66 mill/uL (4.20-5.40); White Blood Cell (WBC) Count 8.7 10x3/uL (4.8-10.8)
[2023-06-13 05:21] LABS: Anion Gap 11 mmol/L (10-20); BUN (Urea Nitrogen) 7 mg/dL (9.8-20.1); Calc. Creatinine Clearance 74 mL/min (70-130); Calcium 8.8 mg/dL (7.8-10.44); Carbon Dioxide 28 mmol/L (23-31); Chloride 107 mmol/L (98-107); Estimated GFR 93; Glucose 121 mg/dL (83-110); Magnesium 1.8 mg/dL (1.6-2.6); Potassium 3.8 mmol/L (3.5-5.1); Sodium 142 mmol/L (136-145)
[2023-06-13 05:23] LABS: Phosphorus 2.2 mg/dL (2.3-4.7)
[2023-06-13] MEDS ORDERED: PHOS-NAK 1 PKT PACK PO SCH (08:15)
[2023-06-13] MEDS: Mometasone 100 MCG/Formoterol 5 MCG 120 PUFF INHALER INH SCH (08:27)
[2023-06-13] MEDS: Megestrol Acetate 800 MG/20 ML UDCUP PO SCH (08:42)
[2023-06-13] MEDS: Escitalopram Oxalate 10 mg Tablet PO SCH (08:42)
[2023-06-13] MEDS: Cholecalciferol 1,000 UNITS (25 MCG) TAB PO SCH (08:42)
[2023-06-13] MEDS: Cyanocobalamin (Vitamin B-12) 1,000 MCG TAB PO SCH (08:43)
[2023-06-13 08:47] VITALS: TEMP 97.5
[2023-06-13] MEDS ORDERED: Hydrocortisone 10 mg Tablet PO SCH (09:00)
[2023-06-13 11:40] VITALS: BP 108/58
== END 2023-06-13 11:22 | disposition home or self-care (01) | DRG 641 ==
LOC: ERS 10:52 → ERHOLD 13:51 → 2SE 18:50
PROVIDERS: ADMIT Hospitalist; ATTEND Family Medicine
PROC: 30233N1 Transfusion of Nonautologous Red Blood Cells into Peripheral Vein, Percutaneous Approach (ICD-10-PCS; principal; 2023-06-11)
DX: E87.1 Hypo-osmolality and hyponatremia (principal); E27.40 Unspecified adrenocortical insufficiency; I95.9 Hypotension, unspecified; D70.9 Neutropenia, unspecified; J44.9 Chronic obstructive pulmonary disease, unspecified; Z90.710 Acquired absence of both cervix and uterus; Z98.890 Other specified postprocedural states; F32.A Depression, unspecified; F17.210 Nicotine dependence, cigarettes, uncomplicated; Z79.899 Other long term (current) drug therapy; Z90.89 Acquired absence of other organs; Z90.49 Acquired absence of other specified parts of digestive tract; Z82.49 Family history of ischemic heart disease and other diseases of the circulatory system; C50.912 Malignant neoplasm of unspecified site of left female breast; D64.81 Anemia due to antineoplastic chemotherapy; T45.1X5A Adverse effect of antineoplastic and immunosuppressive drugs, initial encounter
CPT/HCPCS: 36415; 36416; 36430; 71045; 80048; 80053; 81001; 83605; 83735; 83880; 84100; 84484; 85025; 86850; 86900; 86901; 87040; 87086; 93005; 96361; 96365; 96368; 96375; J0692; J0696; J2405; J3370-JW; J3490; J7050; P9016

== ENCOUNTER 2023-07-24 12:45 | Outpatient (CLI) | payer MEDICARE ==
[~2023-07-24 12:45] MED LIST changes: -Iopamidol-370 76% 500 ML MDV (1 ML CHARGE) ONE; +Magnevist 469MG/ML 20 ML VIAL ONE
== END 2023-07-24 12:46 | disposition home or self-care (01) ==
LOC: BICMRI 12:45
PROVIDERS: ATTEND Surgery
DX: C50.919 Malignant neoplasm of unspecified site of unspecified female breast (principal)
CPT/HCPCS: C8908

== ENCOUNTER 2023-11-18 11:51 | Outpatient (CLI) | payer MEDICARE | END 2023-11-18 11:52 | disposition home or self-care (01) | LOC: SCSRAD 11:51 | PROVIDERS: ATTEND Family Medicine | DX: R05.1 Acute cough (principal) | CPT/HCPCS: 71046 ==